=== PATIENT | female | born 1980 | race African-American/Black ===

== ENCOUNTER 2021-08-25 19:36 | Emergency (ER) | payer OTHER ==
[2021-08-25 19:50] VITALS: BMI 25.8
[2021-08-25] MEDS ORDERED: ACETAMINOPHEN 1000 MG/100 ML BAG IVPB ONE (20:03)
[2021-08-25] MEDS ORDERED: SODIUM CHLORIDE 0.9% 500 ML INFUS.BAG IV ONE (20:03)
[2021-08-25] MEDS ORDERED: ONDANSETRON 4 MG/2 ML VIAL IVPUSH ONE (20:03)
[2021-08-25] MEDS ORDERED: ACETAMINOPHEN INJECTION 100 ML IVPB ONE (20:14)
[2021-08-25] MEDS ORDERED: ONDANSETRON 4 MG/2 ML VIAL ONE (20:15)
[2021-08-25 20:49] LABS: BASO % 0.2 % (0-2.0); HEMATOCRIT 29.4 % (32.4-45.2); MCH 31.1 pg (25.7-33.7); MEAN CELL VOLUME 91.6 fl (80-96); MEAN PLT VOLUME 7.3 fl (7.5-11.1); MONO % 4.5 % (3.8-10.2); NEUT % 85.3 % (42.8-82.8); PLATELET COUNT 294 10^3/uL (134-434); RBC 3.21 M/mm3 (3.60-5.2); RDW 13.4 % (11.6-15.6); WHITE BLOOD COUNT 12.3 K/mm3 (4.0-10.0)
[2021-08-25 21:06] LABS: ACTIVATED PTT 23.5 SECONDS (25.2-36.5); INR 1.11 (0.83-1.09); PROTHROMBIN TIME (PATIENT) 12.8 SEC (9.7-13.0)
[2021-08-25 21:10] LABS: CALCIUM 8.1 mg/dL (8.5-10.1)
[2021-08-25 21:11] LABS: BLOOD UREA NITROGEN 13.9 mg/dL (7-18); MAGNESIUM 1.9 mg/dL (1.8-2.4)
[2021-08-25 21:13] LABS: CREATININE 1.1 mg/dL (0.55-1.3)
[2021-08-25 21:14] LABS: LACTIC ACID 4.1 mmol/L (0.4-2.0)
[2021-08-25 21:15] LABS: BILIRUBIN,TOTAL 0.4 mg/dL (0.2-1)
[2021-08-25] MEDS ORDERED: morphine CARPU-JECT 4 MG/1 ML DISP.SYRIN IVPUSH ONE (23:25)
[2021-08-25 23:53] LABS: LACTIC ACID 3.6 mmol/L (0.4-2.0)
[2021-08-25] MEDS ORDERED: morphine SULFATE 4 MG/ML VIAL ONE (23:56)
[2021-08-26 00:28] LABS: BASO % 0.2 % (0-2.0); HEMATOCRIT 24.3 % (32.4-45.2); HEMOGLOBIN 8.3 GM/dL (10.7-15.3); LYMPH % 7.4 % (8-40); MCH 31.3 pg (25.7-33.7); MCHC 34.3 g/dl (32.0-36.0); MEAN CELL VOLUME 91.3 fl (80-96); MEAN PLT VOLUME 7.7 fl (7.5-11.1); MONO % 3.4 % (3.8-10.2); PLATELET COUNT 250 10^3/uL (134-434); RBC 2.66 M/mm3 (3.60-5.2); RDW 13.5 % (11.6-15.6); WHITE BLOOD COUNT 12.9 K/mm3 (4.0-10.0)
[2021-08-26 00:55] VITALS: BP 123/74
[2021-08-26 01:38] LABS: URINE APPEARANCE CLEAR; URINE COLOR YELLOW
[2021-08-26 01:39] LABS: URINE BILIRUBIN NEGATIVE (NEGATIVE); URINE GLUCOSE (UA) NEGATIVE (NEGATIVE); URINE KETONE NEGATIVE (NEGATIVE); URINE LEUK ESTERASE NEGATIVE (NEGATIVE); URINE NITRITE NEGATIVE (NEGATIVE); URINE PROTEIN NEGATIVE (NEGATIVE); URINE UROBILINOGEN 0.2 mg/dL (0.2-1.0)
[2021-08-26 01:40] LABS: EPI CELLS 10 /uL (0-25.1); HYALINE CASTS 2 /uL (0-3.1); URINE RBC 4 /uL (0-23.9); URINE WBC 18 /uL (0-25.8)
[2021-08-26 01:48] VITALS: PULSE 118; TEMP 98
[2021-08-26 02:04] LABS: COCAINE, UR NEGATIVE (NEGATIVE)
[2021-08-26 02:05] LABS: METHADONE, UR NEGATIVE (NEGATIVE); PHENCYCLIDINE,URINE NEGATIVE (NEGATIVE); URINE BARBITURATES NEGATIVE (NEGATIVE)
[2021-08-26 02:12] LABS: OPIATES, URI POSITIVE (NEGATIVE); URINE AMPHETAMINES NEGATIVE (NEGATIVE); URINE BENZODIAZEPINES NEGATIVE (NEGATIVE)
== END 2021-08-26 01:49 | disposition short-term general hospital (02) ==
LOC: JER 19:36
PROC: 3E0333Z Introduction of Anti-inflammatory into Peripheral Vein, Percutaneous Approach (ICD-10-PCS; principal; 2021-08-25)
PROC: 3E033NZ Introduction of Analgesics, Hypnotics, Sedatives into Peripheral Vein, Percutaneous Approach (ICD-10-PCS; 2021-08-25)
PROC: 3E033GC Introduction of Other Therapeutic Substance into Peripheral Vein, Percutaneous Approach (ICD-10-PCS; 2021-08-25)
DX: K66.1 Hemoperitoneum (principal); N83.9 Noninflammatory disorder of ovary, fallopian tube and broad ligament, unspecified
CPT/HCPCS: 36415; 71045-TC-FY; 74177-TC; 76830-TC; 80053; 80307; 81003; 83605; 83690; 83735; 84484; 84703; 85025; 85610; 85730; 86850; 86900; 86901; 86922; 87086; 93005; 93010; 99285-25; C9803-CS; Q9967; U0003; U0005